=== PATIENT | male | born 1955 | race Caucasian/White ===

== ENCOUNTER 2020-06-16 10:05 | Outpatient (REF) | payer MEDICARE, MEDICAID, SELFPAY ==
[2020-06-16 11:41] LABS: Alanine Aminotransferase 59 U/L (0-40); Albumin Level 4.2 g/dL (3.5-5.0); Alkaline Phosphatase 399 U/L (39-117); Aspartate Amino Transferase 32 U/L (5-37); Bilirubin Direct 0.2 mg/dL (0.0-0.5); Bilirubin Total 0.4 mg/dL (0.0-1.0); Iron 58 mcg/dL (45-160); Percent Iron Saturation 20 % (15-50); Total Iron Binding Capacity 291 mcg/dL (228-428); Total Protein 6.9 g/dL (6.5-8.0); Unsaturated Iron Binding 233 ug/dL
[2020-06-16 11:52] LABS: Erythrocyte Sedimentation Rate 20 MM/HR (0-15)
[2020-06-16 12:01] LABS: ~HepC Num1 0.09 S/CO (0.00-0.79); ~Hepatitis B Surface Antibody NONREACTIVE (Nonreactive); ~Hepatitis C Antibody Nonreactive (Nonreactive)
[2020-06-16 12:40] LABS: HBc Num1 0.16 S/CO (0.00-0.79); HBsAGNum1 0.18 S/CO (0.00-0.99); Hepatitis B Core Antibody Nonreactive (Nonreactive); Hepatitis B Surface Antigen Negative (Negative)
[2020-06-18 08:55] LABS: Hepatitis A Antibody IgM 0.17 Index (0-0.79); ~Hepatitis A Antibody IgM Nonreactive (Nonreactive)
== END 2020-06-16 10:06 | disposition home or self-care (01) ==
LOC: HO.10HDL 10:05
DX: D64.9 Anemia, unspecified (principal); R53.83 Other fatigue
CPT/HCPCS: 36415; 80076; 83540; 85652; 86704; 86706; 86709; 86803; 87340

== ENCOUNTER 2020-09-29 11:56 | Outpatient (REF) | payer MEDICARE, MEDICAID, SELFPAY | END 2020-09-29 11:57 | disposition home or self-care (01) | LOC: HO.10HDL 11:56 | PROVIDERS: Visit Provider Urology | DX: Z12.5 Encounter for screening for malignant neoplasm of prostate (principal); C61 Malignant neoplasm of prostate | CPT/HCPCS: 36415; 84153 ==

== ENCOUNTER 2021-05-20 08:20 | Outpatient (REF) | payer MEDICARE, MEDICAID, SELFPAY ==
[2021-05-20 11:09] LABS: Anion Gap 13 (12-20); Blood Urea Nitrogen 12 mg/dL (9-16); Calcium 9.1 mg/dL (8.4-10.2); Carbon Dioxide 25 mmol/L (22-29); Chloride 105 mmol/L (96-108); Estimated Glomerular Filt Rate > 60; Glucose Random 116 mg/dL (60-115); Potassium 3.9 mmol/L (3.3-5.1); Sodium 139 mmol/L (135-145)
[2021-05-20 12:09] LABS: Prostate Specific Antigen 212.19 ng/mL (<0.05-4.0)
== END 2021-05-20 08:21 | disposition home or self-care (01) ==
LOC: HO.10HDL 08:20
PROVIDERS: Visit Provider Urology
DX: Z12.5 Encounter for screening for malignant neoplasm of prostate (principal); C61 Malignant neoplasm of prostate
CPT/HCPCS: 36415; 80048; 84153

== ENCOUNTER 2021-12-10 12:39 | Outpatient (REF) | payer MEDICARE, OTHER, SELFPAY ==
[2021-12-10 13:17] LABS: Leukocytes Stool Qualitative NEGATIVE (NEGATIVE)
[2021-12-10 15:37] LABS: CDiff Gene PCR NEGATIVE (Negative)
== END 2021-12-10 12:40 | disposition home or self-care (01) ==
LOC: HO.LNP 12:39
PROVIDERS: Visit Provider Internal Medicine
DX: R19.7 Diarrhea, unspecified (principal)
CPT/HCPCS: 87045; 87046; 87493; 89055